=== PATIENT | male | born 1945 | race Caucasian/White ===

== ENCOUNTER 2018-03-26 07:21 | Day surgery (SDC) | payer MEDICARE, BC ==
[2018-03-26] MEDS ORDERED: Midazolam 1 MG/ML 2 ML SDV ONE (07:50)
[2018-03-26] MEDS ORDERED: Propofol 200 MG/20 ML SDV ONE (07:50)
[2018-03-26] MEDS ORDERED: fentaNYL 100 MCG/2 ML SDV ONE (07:50)
[2018-03-26] MEDS ORDERED: Sodium Chloride 0.9% 1,000 ML IV SCH ×2 (08:00→08:45)
[2018-03-26 10:12] VITALS: BP 121/91
--- NOTE | 2018-03-30 12:04 | OR ---
DATE OF PROCEDURE: 03/26/2018 PROCEDURE: Colonoscopy. FINDINGS: Normal colonoscopy. PREOPERATIVE DIAGNOSIS: Screening colonoscopy. POSTOPERATIVE DIAGNOSIS: Screening colonoscopy. RISKS: Risks, benefits, alternatives, and limitations including, but not limited to infection, bleeding, and perforation were explained to the patient who wished to proceed. PROCEDURE IN DETAIL: The patient was placed in left lateral decubitus position. A digital rectal exam was performed without abnormality. The scope was introduced and advanced atraumatically to the ileocecal valve. The scope was brought back to the ascending, transverse, descending colon, and retroflexed. No evidence of old or new blood. No masses. No polyps. No other concerns. The patient tolerated the procedure well. Rayshawn Guan MD /[id number]
== END 2018-03-26 10:27 | disposition home or self-care (01) ==
LOC: JP.SDS 07:21
PROVIDERS: ATTEND Surgery
DX: Z12.11 Encounter for screening for malignant neoplasm of colon (principal); I10 Essential (primary) hypertension; Z88.5 Allergy status to narcotic agent
CPT/HCPCS: G0121; J2250; J2704; J3010; J7040

== ENCOUNTER 2020-12-19 07:20 | Day surgery (SDC) | payer MEDICARE, BC ==
[~2020-12-19 07:20] MED LIST: Bupivacaine 0.5% 30 ML SDV ONE; Lidocaine 1% with EPINEPHrine 1:100,000 50 ML MDV ONE
[2020-12-19] MEDS ORDERED: Dextrose 5%-Lactated Ringers 1,000 ML IV SCH (08:00)
[2020-12-19] MEDS ORDERED: Acetaminophen 500 MG Tab PO ONE (08:00)
[2020-12-19] MEDS ORDERED: ceFAZolin 2 GM in Premix Bag 1 BAG IV ONE (08:00)
[2020-12-19] MEDS ORDERED: Midazolam 1 MG/ML 2 ML SDV ONE (08:05)
[2020-12-19] MEDS ORDERED: Propofol 200 MG/20 ML SDV ONE ×2 (08:05→09:41)
[2020-12-19] MEDS ORDERED: fentaNYL 100 MCG/2 ML SDV ONE (08:05)
[2020-12-19] MEDS ORDERED: Ketorolac 60 MG/2 ML SDV ONE (10:03)
[2020-12-19 11:24] VITALS: BP 123/52; PULSE 66
--- NOTE | 2020-12-25 17:33 | OR ---
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 POSTOPERATIVE DIAGNOSIS: Intramuscular mass, right rectus femoris muscle. OPERATIVE PROCEDURE: Excision of intramuscular mass of right rectus femoris muscle. ANESTHETIC: Local plus IV sedation. SANITARY ENGINEER: ALEX Hyatt student. INDICATION FOR PROCEDURE: This is a 75-year-old presenting with a soft tissue mass in the mid anterior right thigh. Clinically, this appeared to be most likely lipoma. Plan is to proceed with excision of this. Potential risks including bleeding, infection, local recurrence of the problem, possibility that it might be something more serious than a lipoma such as a soft tissue sarcoma were gone over and the patient wishes to proceed. DETAILS OF PROCEDURE: The patient was taken to the operating room and placed in a supine position. IV sedation was administered, after which the anterior thigh and surrounding areas were prepped and draped. The area was marked out preoperatively in the ACU and could be palpated, and at this point has a mobile flattened soft tissue mass, typically suggestive of a lipoma. The area overlying this was anesthetized with 1% lidocaine mixed with Marcaine and a vertical incision over the length of the palpable lesion was made. This was carried down through the skin and subcutaneous tissue. The lateral cutaneous nerve of the thigh was identified and retracted laterally and preserved. Upon dividing the investing fascia over the rectus femoris muscle, it became evident that the mass was in fact intramuscular and basically the bulk mass was then grossly entirely removed but with a small margin knowing if this came back as a sarcoma, he would need to have a more radical subsequent resection of that area. The area removed and measured 6 x 7 cm and contained within the substance of the muscle a firm yellowish soft tissue. At this point, there were no further obvious problems. There was no adherence of the femoris rectus muscle to the adjacent soft tissue at any point, i.e. no local invasion of a malignancy to the adjacent muscles or other soft tissue was evident. The fascia was then closed with 2-0 Vicryl stitch with care taken to avoid incorporating the lateral cutaneous nerve of thigh. Subcutaneous tissue was approximated with some additional 2-0 Vicryl stitch, 4-0 Vicryl subdermal stitch, and toni for the skin. A drain had been placed 3 cm inferior to the incision to avoid a hematoma or seroma formation in that area and sutured to the skin with 3-0 Vicryl stitch and dressing applied. The patient was taken to the recovery room in satisfactory condition. We will await the patient's pathology report and then proceed from there in terms of additional treatment if necessary. Micah Ayala MD /[id number]
== END 2020-12-19 11:30 | disposition home or self-care (01) ==
LOC: JP.SDS 07:20
PROVIDERS: ATTEND Surgery
DX: M79.89 Other specified soft tissue disorders (principal); D17.23 Benign lipomatous neoplasm of skin and subcutaneous tissue of right leg; I10 Essential (primary) hypertension; E66.9 Obesity, unspecified; E11.9 Type 2 diabetes mellitus without complications; Z68.34 Body mass index [BMI] 34.0-34.9, adult
CPT/HCPCS: A9270-GY; J0690; J1885; J2250; J2704; J3010; J3490; J7121

== ENCOUNTER 2022-10-14 06:21 | Day surgery (SDC) | payer MEDICARE, BC ==
[2022-10-14] MEDS ORDERED: Nozin Nasal Sanitizer NASBOTH ONE (07:00)
[2022-10-14] MEDS ORDERED: Lactated Ringers 1,000 ML IV SCH (07:00)
[2022-10-14] MEDS ORDERED: ceFAZolin 2 GM in Sodium Chloride 0.9% 50 ML IV ONE (07:30)
[2022-10-14] MEDS ORDERED: Bupivacaine 0.5% 30 ML SDV ONE ×3 (07:34→07:37)
[2022-10-14] MEDS ORDERED: Midazolam 1 MG/ML 2 ML SDV ONE ×2 (07:34→08:22)
[2022-10-14] MEDS ORDERED: fentaNYL 100 MCG/2 ML SDV ONE (07:34)
[2022-10-14] MEDS ORDERED: Propofol 200 MG/20 ML SDV ONE ×2 (07:34→08:00)
[2022-10-14] MEDS ORDERED: fentaNYL 250 MCG/5 ML SDV ONE (08:22)
[2022-10-14] MEDS ORDERED: Acetaminophen/oxyCODONE 325-5 MG Tab PO PRN (10:01)
[2022-10-14 11:38] VITALS: BP 126/74; PULSE 70
== END 2022-10-14 12:07 | disposition home or self-care (01) ==
LOC: JP.SDS 06:21
PROVIDERS: ATTEND Specialist
DX: M75.112 Incomplete rotator cuff tear or rupture of left shoulder, not specified as traumatic (principal); I10 Essential (primary) hypertension; E11.9 Type 2 diabetes mellitus without complications; E78.00 Pure hypercholesterolemia, unspecified; G47.33 Obstructive sleep apnea (adult) (pediatric); J45.909 Unspecified asthma, uncomplicated; Z79.899 Other long term (current) drug therapy; Z88.6 Allergy status to analgesic agent; Z87.891 Personal history of nicotine dependence
CPT/HCPCS: 29827; A9270; C1713; J0690; J2250; J2704; J3010; J3490; J7120

== ENCOUNTER 2023-03-13 07:41 | Day surgery (SDC) | payer MEDICARE, BC ==
[~2023-03-13 07:41] MED LIST changes: -Bupivacaine 0.5% 30 ML SDV ONE; -Lidocaine 1% with EPINEPHrine 1:100,000 50 ML MDV ONE; +Propofol 200 MG/20 ML SDV ONE; +fentaNYL 50 MCG/ML SDV ONE
[2023-03-13] MEDS ORDERED: Sodium Chloride 0.9% 1,000 ML IV SCH (08:15)
[2023-03-13 10:32] VITALS: BP 134/77; PULSE 55
== END 2023-03-13 10:39 | disposition home or self-care (01) ==
LOC: JP.SDS 07:41
PROVIDERS: ATTEND Surgery
DX: Z12.11 Encounter for screening for malignant neoplasm of colon (principal); I10 Essential (primary) hypertension; J45.909 Unspecified asthma, uncomplicated; E78.5 Hyperlipidemia, unspecified; K21.9 Gastro-esophageal reflux disease without esophagitis; E11.9 Type 2 diabetes mellitus without complications; E66.9 Obesity, unspecified; Z79.899 Other long term (current) drug therapy; Z88.6 Allergy status to analgesic agent
CPT/HCPCS: J2704; J3010; J7030

== ENCOUNTER 2024-04-28 06:58 | Inpatient (IN) | payer MEDICARE, BC ==
[2024-04-28] MEDS: Lactated Ringers 1,000 ML IV SCH (07:16)
[2024-04-28] MEDS ORDERED: Midazolam 1 MG/ML 2 ML SDV ONE (07:29)
[2024-04-28] MEDS ORDERED: fentaNYL 100 MCG/2 ML SDV ONE (07:29)
[2024-04-28] MEDS ORDERED: Propofol 200 MG/20 ML SDV ONE ×2 (07:30→09:28)
[2024-04-28] MEDS: Nozin Nasal Sanitizer NASBOTH SCH ×2 (07:41→21:08)
[2024-04-28] MEDS ORDERED: Magnesium Hydroxide 400 MG/5 ML Susp 30 ML Cup PO PRN (07:52)
[2024-04-28] MEDS ORDERED: Ondansetron 4 MG/2 ML SDV IVPUSH PRN (07:52)
[2024-04-28] MEDS ORDERED: Albuterol 6.7 GM Inhaler INH PRN (07:54)
[2024-04-28] MEDS: ceFAZolin 2 GM in Premix Bag 1 BAG IV ONE (08:25)
[2024-04-28] MEDS ORDERED: ceFAZolin 2 GM in Sodium Chloride 0.9% 50 ML IV ONE (08:30)
[2024-04-28] MEDS ORDERED: Lidocaine 1% 4 ML ONE (08:50)
[2024-04-28] MEDS: Tranexamic Acid 1,000 MG in Sodium Chloride 0.9% 50 ML IV ONE (08:55)
[2024-04-28] MEDS: Bupivacaine 0.5% 50 ML MDV ONE (09:11)
[2024-04-28] MEDS ORDERED: Lactated Ringers 1,000 ML ONE (09:29)
[2024-04-28] MEDS: Ketorolac 30 MG/ML SDV IVPUSH PRN (11:35)
[2024-04-28] MEDS: Sodium Chloride 0.9% 1,000 ML IV SCH (12:00)
[2024-04-28] MEDS: oxyCODONE 5 MG Tab PO PRN (12:10)
[2024-04-28 12:24] LABS: BASOPHILS ABSOLUTE AUTO 0.03 K/uL (0.00-0.10); BASOPHILS PERCENT AUTO 0.3 % (0.1-1.3); EOSINOPHILS ABSOLUTE AUTO 0.18 K/uL (0.00-0.40); EOSINOPHILS PERCENT AUTO 1.7 % (0.0-5.4); HEMATOCRIT 36.7 % (38.4-49.7); HEMOGLOBIN 13.2 g/dL (12.9-16.9); IMMATURE GRAN ABSOLUTE AUTO 0.04 K/uL (0.00-0.23); IMMATURE GRAN PERCENT AUTO 0.4 % (0.0-0.7); LYMPHOCYTES PERCENT AUTO 28.5 % (11.4-47.7); MEAN CORPUSCULAR HEMOGLOBIN 33.8 pg (31.6-35.5); MEAN CORPUSCULAR VOLUME 94.1 fL (81.4-99.0); MONOCYTES ABSOLUTE AUTO 1.01 K/uL (0.20-0.90); MONOCYTES PERCENT AUTO 9.3 % (3.3-12.6); NEUTROPHILS ABSOLUTE AUTO 6.52 K/uL (1.0-7.6); NEUTROPHILS PERCENT AUTO 59.8 % (40.0-78.1); PLATELET COUNT,PLT 168 K/uL (130-375); WHITE BLOOD CELL COUNT,WBC 10.9 K/uL (3.2-11.0)
[2024-04-28 12:52] LABS: CALCIUM 8.9 mg/dL (8.5-10.1); CREATININE 1.2 mg/dL (0.8-1.3); EST CRCL DRUG DOSING (CG) 45.86 mL/min; POTASSIUM,K 4.5 mmol/L (3.6-5.2); TROPONIN I HIGH SENSITIVITY 12.9 pg/mL (<=60.3)
[2024-04-28 13:10] LABS: ANION GAP 12.5 mmol/L (5.0-14.0)
[2024-04-28] MEDS: Tamsulosin 0.4 MG Cap.ER PO SCH (14:49)
[2024-04-28] MEDS: Hydrochlorothiazide 12.5 MG Cap PO SCH (14:49)
[2024-04-28] MEDS: Pantoprazole 40 MG Tab.CR PO SCH (14:50)
[2024-04-28] MEDS: Allopurinol 100 MG Tab PO SCH (14:50)
[2024-04-28] MEDS: Cholecalciferol (Vitamin D3) 25 MCG Tab PO SCH (14:50)
[2024-04-28] MEDS: Magnesium Oxide 400 MG Tab PO SCH (14:52)
[2024-04-28] MEDS: Lisinopril 10 MG Tab PO SCH (14:52)
[2024-04-28] MEDS: Multivitamins with Iron/Calcium/Folic Acid/Minerals Tab PO SCH (14:53)
[2024-04-28] MEDS: Acetaminophen 325 MG Tab PO SCH (14:53)
[2024-04-28] MEDS: Ascorbic Acid 500 MG Tab PO SCH (14:55)
[2024-04-28] MEDS: ceFAZolin 2 GM in Premix Bag 1 BAG IV SCH (17:00)
[2024-04-28] MEDS: Gabapentin 300 MG Cap PO SCH (21:07)
[2024-04-28] MEDS: Fish Oil/Omega-3 Fatty Acids 1 Gm Cap PO SCH (21:07)
[2024-04-28] MEDS: atorvaSTATin 20 MG Tab PO SCH (21:08)
[2024-04-29] MEDS: Aspirin 325 MG Tab.EC PO SCH (08:02)
[2024-04-29] MEDS: Triamcinolone Acetonide 0.1% Crm 15 GM Tube TOP SCH (08:03)
[2024-04-29] MEDS: Formoterol/Mometasone 200-5 MCG 8.8 GM Inhaler INH SCH (08:39)
[2024-04-29] MEDS ORDERED: SEMAGLUTIDE 2 MG/0.75 ML SQ SCH (09:00)
[2024-04-29] MEDS: Sodium Chloride 0.9% 1,000 ML IV SCH (14:35)
[2024-04-29] MEDS: Latanoprost 0.005% Ophth Soln 2.5 ML Bottle EYERT SCH (20:56)
[2024-04-30] MEDS: oxyCODONE 5 MG Tab PO PRN ×2 (10:14→15:11)
[2024-04-30] MEDS: Docusate Sodium 100 MG Cap PO PRN (12:34)
[2024-05-01] MEDS ORDERED: Glucose Gel 15 GM in 37.5 GM Tube PO PRN (10:33)
[2024-05-01] MEDS ORDERED: 50% Dextrose in Water 50 ML Syringe IV PRN (10:33)
[2024-05-01] MEDS: Insulin Lispro 100 Unit/ML 3 ML KwikPen SUBCUT SCH (12:16)
[2024-05-02] MEDS: HYDROmorphone 2 MG Tab PO PRN (14:46)
[2024-05-03 05:09] LABS: BASOPHILS ABSOLUTE AUTO 0.04 K/uL (0.00-0.10); BASOPHILS PERCENT AUTO 0.4 % (0.1-1.3); EOSINOPHILS PERCENT AUTO 1.8 % (0.0-5.4); HEMOGLOBIN 11.6 g/dL (12.9-16.9); IMMATURE GRAN ABSOLUTE AUTO 0.06 K/uL (0.00-0.23); IMMATURE GRAN PERCENT AUTO 0.5 % (0.0-0.7); LYMPHOCYTES ABSOLUTE AUTO 1.67 K/uL (0.8-3.3); LYMPHOCYTES PERCENT AUTO 15.2 % (11.4-47.7); MEAN CORPUSCULAR HEMOGLOBIN 33.3 pg (31.6-35.5); MEAN CORPUSCULAR HGB CONC 35.2 g/dL (31.6-35.5); MEAN CORPUSCULAR VOLUME 94.8 fL (81.4-99.0); MONOCYTES ABSOLUTE AUTO 1.73 K/uL (0.20-0.90); MONOCYTES PERCENT AUTO 15.7 % (3.3-12.6); NEUTROPHILS PERCENT AUTO 66.4 % (40.0-78.1); PLATELET COUNT,PLT 209 K/uL (130-375); RED BLOOD CELL COUNT 3.48 M/uL (4.14-5.76)
[2024-05-03 10:24] VITALS: BP 138/74; PULSE 86
== END 2024-05-03 10:55 | DRG 470 ==
LOC: JP.SDS 06:58 → JP.MS 07:52 → JP.ICU 13:01 → JP.SDS 13:19
PROVIDERS: ADMIT Specialist; ATTEND Specialist
PROC: 0SRD069 Replacement of Left Knee Joint with Oxidized Zirconium on Polyethylene Synthetic Substitute, Cemented, Open Approach (ICD-10-PCS; principal; 2024-04-28 08:30)
DX: M17.12 Unilateral primary osteoarthritis, left knee (principal); I97.191 Other postprocedural cardiac functional disturbances following other surgery; E11.9 Type 2 diabetes mellitus without complications; I10 Essential (primary) hypertension; E78.2 Mixed hyperlipidemia; M10.9 Gout, unspecified; J45.40 Moderate persistent asthma, uncomplicated; I70.90 Unspecified atherosclerosis; I44.0 Atrioventricular block, first degree; N40.0 Benign prostatic hyperplasia without lower urinary tract symptoms; E78.00 Pure hypercholesterolemia, unspecified; K59.09 Other constipation; K52.9 Noninfective gastroenteritis and colitis, unspecified; M19.90 Unspecified osteoarthritis, unspecified site; E66.9 Obesity, unspecified; Z96.619 Presence of unspecified artificial shoulder joint; I44.1 Atrioventricular block, second degree; Z86.16 Personal history of COVID-19; Z98.890 Other specified postprocedural states; Z79.899 Other long term (current) drug therapy; Z88.5 Allergy status to narcotic agent; Z86.010 Personal history of colon polyps; Z68.36 Body mass index [BMI] 36.0-36.9, adult; Z98.49 Cataract extraction status, unspecified eye; Z90.89 Acquired absence of other organs; Z87.891 Personal history of nicotine dependence
CPT/HCPCS: 01402-QZ; 36415; 73560-26-LT; 73560-LT; 80048; 82947; 83880; 84484; 85025; 93005; 93010; 94640; 97110-GP; 97116-GP; 97161-GP; 97165-GO; 97530-GP; 97535-GO; 99231; 99232; 99238; A9270-GY; C1713; C1776; J0665; J0690; J1815; J1885; J2250; J2704; J3010; J3490; J7030; J7120

== ENCOUNTER 2025-04-11 06:03 | Day surgery (SDC) | payer MEDICARE, BC ==
[2025-04-11 06:27] LABS: HEMATOCRIT 42.4 % (38.4-49.7); HEMOGLOBIN 14.7 g/dL (12.9-16.9); MEAN CORPUSCULAR HEMOGLOBIN 33.9 pg (31.6-35.5); MEAN CORPUSCULAR HGB CONC 34.7 g/dL (31.6-35.5); MEAN CORPUSCULAR VOLUME 97.7 fL (81.4-99.0); RED BLOOD CELL COUNT 4.34 M/uL (4.14-5.76)
[2025-04-11] MEDS: Nozin Nasal Sanitizer NASBOTH ONE (06:45)
[2025-04-11 06:48] LABS: ALANINE AMINOTRANSFERASE,ALT 23 U/L (12-78); ALBUMIN 3.5 g/dL (3.4-5.0); ALKALINE PHOSPHATASE 76 U/L (46-116); ASPARTATE AMNIOTRANSFERASE,AST 21 U/L (15-37); BILIRUBIN TOTAL 0.6 mg/dL (0.2-1.0); BLOOD UREA NITROGEN,BUN 31 mg/dL (7-18); CALCIUM 9.7 mg/dL (8.5-10.1); CARBON DIOXIDE,CO2 27 mmol/L (21-32); CHLORIDE,CL 99 mmol/L (100-108); CREATININE 1.4 mg/dL (0.8-1.3); EST CRCL DRUG DOSING (CG) 43.45 mL/min; ESTIMATED GFR 51 mL/min (>60); GLUCOSE RANDOM 211 mg/dL (74-106); POTASSIUM,K 4.2 mmol/L (3.6-5.2); PROTEIN TOTAL,TP 6.9 g/dL (6.4-8.2); SODIUM,NA 135 mmol/L (140-148)
[2025-04-11 06:49] LABS: ANION GAP 13.2 mmol/L (5.0-14.0)
[2025-04-11] MEDS: Lactated Ringers 1,000 ML IV SCH (07:00)
[2025-04-11] MEDS: Albuterol/Ipratropium 3.0-0.5 MG/3 ML Neb Soln NEB ONE (07:18)
[2025-04-11] MEDS ORDERED: fentaNYL 100 MCG/2 ML SDV ONE (07:18)
[2025-04-11] MEDS ORDERED: Midazolam 1 MG/ML 2 ML SDV ONE (07:19)
[2025-04-11] MEDS ORDERED: Propofol 200 MG/20 ML SDV ONE (07:19)
[2025-04-11] MEDS ORDERED: Bupivacaine 0.5% 30 ML SDV ONE (07:21)
[2025-04-11] MEDS: ceFAZolin 1 GM in Premix Bag 1 BAG IV ONE (07:45)
[2025-04-11 10:03] VITALS: PULSE 62
[2025-04-11] MEDS: Acetaminophen/HYDROcodone 325-5 MG Tab PO PRN (10:05)
[2025-04-11 11:03] VITALS: BP 155/74
== END 2025-04-11 11:00 | disposition home or self-care (01) ==
LOC: JP.SDS 06:03
PROVIDERS: ATTEND Specialist
DX: M75.101 Unspecified rotator cuff tear or rupture of right shoulder, not specified as traumatic (principal); M19.011 Primary osteoarthritis, right shoulder; I10 Essential (primary) hypertension; E11.9 Type 2 diabetes mellitus without complications; J45.909 Unspecified asthma, uncomplicated; K21.9 Gastro-esophageal reflux disease without esophagitis; Z88.5 Allergy status to narcotic agent
CPT/HCPCS: 36415; 80053; 85027; 93005; 94640; A9270; C1889; C9781; J0665; J0689; J2250; J2704; J3010; J7120

== ENCOUNTER 2025-08-29 08:50 | Inpatient (IN) | payer MEDICARE, BC ==
[~2025-08-29 08:50] MED LIST changes: +Dexamethasone 4 MG/ML SDV ONE; +Glycopyrrolate 0.2 MG/ML 5 ML MDV ONE; +Midazolam 1 MG/ML 2 ML SDV ONE; +Ondansetron 4 MG/2 ML SDV ONE; +Succinylcholine 200 MG/10 ML MDV ONE; +fentaNYL 100 MCG/2 ML SDV ONE; -fentaNYL 50 MCG/ML SDV ONE
[2025-08-29] MEDS: Nozin Nasal Sanitizer NASBOTH SCH ×2 (09:37→20:21)
[2025-08-29] MEDS: Lactated Ringers 1,000 ML IV SCH (09:49)
[2025-08-29] MEDS ORDERED: Nystatin Topical Powder 15 GM Bottle TOP PRN (11:32)
[2025-08-29] MEDS ORDERED: Ketorolac 15 MG/ML SDV IVPUSH PRN (11:35)
[2025-08-29] MEDS ORDERED: Ondansetron 4 MG/2 ML SDV IVPUSH PRN (11:35)
[2025-08-29] MEDS ORDERED: Formoterol/Mometasone 200-5 MCG 8.8 GM Inhaler INH PRN (11:49)
[2025-08-29] MEDS ORDERED: ePHEDrine 50 MG/ML SDV ONE (12:23)
[2025-08-29] MEDS ORDERED: Lactated Ringers 1,000 ML ONE (13:19)
[2025-08-29] MEDS: fentaNYL 50 MCG/ML SDV IVPUSH ONE (14:24)
[2025-08-29] MEDS: Fish Oil/Omega-3 Fatty Acids 1 Gm Cap PO SCH (20:20)
[2025-08-29] MEDS ORDERED: [UNRECOGNIZED DRUG - OTHER] PO SCH (21:00)
[2025-08-30 05:54] LABS: PLATELET COUNT,PLT 186.0 K/uL (130-375); RED BLOOD CELL COUNT 3.62 M/uL (4.14-5.76); WHITE BLOOD CELL COUNT,WBC 12.2 K/uL (3.2-11.0)
[2025-08-30] MEDS: Multivitamins with Iron/Calcium/Folic Acid/Minerals Tab PO SCH (08:45)
[2025-08-30] MEDS: Aspirin 325 MG Tab.EC PO SCH (08:45)
[2025-08-30] MEDS: Cholecalciferol (Vitamin D3) 25 MCG Tab PO SCH (08:46)
[2025-08-31 05:51] VITALS: PULSE 61
[2025-08-31] MEDS ORDERED: SEMAGLUTIDE 0.5 MG/0.5 ML PO SCH (09:00)
[2025-08-31 09:12] VITALS: BP 103/61
== END 2025-08-31 09:54 | disposition home or self-care (01) | DRG 483 ==
LOC: JP.SDS 08:50 → JP.MS 11:35 → JP.SDS 08-30 12:20
PROVIDERS: ADMIT Specialist; ATTEND Specialist
PROC: 0RRJ00Z Replacement of Right Shoulder Joint with Reverse Ball and Socket Synthetic Substitute, Open Approach (ICD-10-PCS; principal; 2025-08-29 10:00)
DX: M19.011 Primary osteoarthritis, right shoulder (principal); E11.9 Type 2 diabetes mellitus without complications; E11.621 Type 2 diabetes mellitus with foot ulcer; E11.21 Type 2 diabetes mellitus with diabetic nephropathy; E11.22 Type 2 diabetes mellitus with diabetic chronic kidney disease; N18.31 Chronic kidney disease, stage 3a; K21.9 Gastro-esophageal reflux disease without esophagitis; N40.0 Benign prostatic hyperplasia without lower urinary tract symptoms; M10.9 Gout, unspecified; E78.5 Hyperlipidemia, unspecified; R00.1 Bradycardia, unspecified; R55 Syncope and collapse; I12.9 Hypertensive chronic kidney disease with stage 1 through stage 4 chronic kidney disease, or unspecified chronic kidney disease; H40.9 Unspecified glaucoma; H54.7 Unspecified visual loss; E78.00 Pure hypercholesterolemia, unspecified; J45.909 Unspecified asthma, uncomplicated; K59.00 Constipation, unspecified; E66.9 Obesity, unspecified; Z96.659 Presence of unspecified artificial knee joint; Z98.890 Other specified postprocedural states; Z79.899 Other long term (current) drug therapy; Z98.49 Cataract extraction status, unspecified eye; Z68.31 Body mass index [BMI] 31.0-31.9, adult; Z88.8 Allergy status to other drugs, medicaments and biological substances; Z86.16 Personal history of COVID-19
CPT/HCPCS: 01638-QZ; 36415; 73020-26-RT; 73020-RT; 85027; 93005; 93010; 94640; 97110-GO; 97165-GO; 97535-GO; 99231; 99232; A9270-GY; C1713; C1776; J0330; J0665; J0690; J1100; J1596; J2250; J2405; J2704; J2710; J3010; J3490; J7030; J7120